=== PATIENT | male | born 1965 | race Asian ===

== ENCOUNTER 2019-01-22 19:17 | Emergency (ER) | payer OTHER ==
[~2019-01-22] VITALS: Ht 182.9 cm; Wt 68.9 kg
[2019-01-22 19:20] VITALS: BP_SYST 135
--- NOTE | 2019-01-22 19:20 | NUR ---
Echo araujo in ED - 01/22/19 at 1944 by MISTY Patient to ER bed 8 for evaluation.
--- NOTE | 2019-01-22 19:23 | NUR ---
Placed in room 8 . Placed on patient monitor, blood pressure machine and pulse oximeter. To gown for exam. Side rails up. Report given to SUZANNE PEREZ.
--- NOTE | 2019-01-22 19:30 | NUR ---
Patient to ER via triage for evaluation of rash and itching after being bit by ants earlier. Patient is awake, alert and oriented in no acute distress, vital signs stable, respirations even and unlabored, skin warm and dry to touch. No increase noted in work of breathing, no respiratory distress noted. Awaiting evaluation by ER MD, will continue to observe and assess.
--- NOTE | 2019-01-22 19:50 | NUR ---
ER at bedside examining patient.
[2019-01-22] MEDS ORDERED: methylPREDNISolone SOD SUCC/PF 62.5 MG/ML VIAL IM ONE (20:00)
[2019-01-22] MEDS ORDERED: SULFAMETHOXAZOLE/TRIMETHOPR DS 1 TABLET PO ONE (20:00)
--- NOTE | 2019-01-22 20:16 | NUR ---
Dr Davison at bedside speaking with patient/family regarding plan of care, questions answered by Dr Davison.
[2019-01-22 20:20] VITALS: BP_SYST 130
--- NOTE | 2019-01-22 20:20 | NUR ---
Patient given written and verbal discharge instructions and verbalizes understanding. ER MD discussed with patient the results and treatment provided. Patient in stable condition. ID arm band removed. Rx of Benadryl, Prednisone, Bactrim DS given. Patient educated on pain management and to follow up with PMD. Pain Scale 0. Opportunity for questions provided and answered. Medication side effect fact sheet provided. Patient left ER in no acute distress, able to ambulate without difficulty with slow, steady gait with family at his side. No adverse reaction noted to medication.
== END 2019-01-22 20:20 | disposition home or self-care (01) ==
LOC: SED 19:17
DX: T78.40XA Allergy, unspecified, initial encounter (principal); S90.862A Insect bite (nonvenomous), left foot, initial encounter; S90.861A Insect bite (nonvenomous), right foot, initial encounter; L03.116 Cellulitis of left lower limb; L03.115 Cellulitis of right lower limb; E78.00 Pure hypercholesterolemia, unspecified; W57.XXXA Bitten or stung by nonvenomous insect and other nonvenomous arthropods, initial encounter; Y93.89 Activity, other specified; Y92.89 Other specified places as the place of occurrence of the external cause; Y99.8 Other external cause status
CPT/HCPCS: 96372; 99283; J2930